=== PATIENT | male | born 1945 | race Caucasian/White ===

== ENCOUNTER → 2019-11-06 | Outpatient (CLI) | payer MEDICARE, BC ==
[~2019-11-06] MED LIST: APIX5TAB PO; FLUT9.9S NS; SOTA80TA48 PO; TAMS0.4C97 PO; TRAM1TAB4 PO
== END | disposition home or self-care (01) ==
LOC: LAB 13:45
PROVIDERS: ATTEND Internal Medicine Gastroenterology
DX: Z11.59 Encounter for screening for other viral diseases (principal); K21.0 Gastro-esophageal reflux disease with esophagitis
CPT/HCPCS: C9803; U0003; 36415

== ENCOUNTER → 2019-11-10 | Day surgery (SDC) | payer MEDICARE, BC ==
[~2019-11-10] MED LIST changes: +HYDROmorphone 2 MG/ML VIAL IV PRN; +IV RINGERS,LACTATED 1000ML 1,000 ML IV SCH; +LIDOCAINE 1% PF 2 ML VIAL. ID PRN; +LIDOCAINE 2% PF 5 ML VIAL. ONE; +MORPHINE SULFATE 2 MG/ML VIAL. IV PRN; +ONDANSETRON PF 4 MG/2 ML VIAL. IV PRN; +PROCHLORPERAZINE 10 MG/2 ML VIAL. IV PRN; +PROPOFOL 10 MG/ML (20ML) VIAL. IV ONE; +fentaNYL PF VIAL 100 MCG/2 ML VIAL IV PRN
--- NOTE | 2019-11-10 10:02 | HP ---
ADMIT DATE: REASON FOR CONSULTATION: Reflux. HISTORY OF PRESENT ILLNESS: A 74-year-old male with past medical history significant for DVTs, sleep apnea, history of colonic polyps, reflux, stage 3 kidney disease, is seen for continued heartburn, chest pain, has been maintained on Zantac until withdrawn, had no history of Tay's or malignancy. Screening colonoscopy will be pursued in 2021. He is otherwise without additional complaints. PAST MEDICAL HISTORY: Stage 3 kidney disease, GERD, history of colonic polyps, diverticulosis. ALLERGIES: None. MEDICATIONS: Include Eliquis, fluconazole, sotalol, tamsulosin, and tramadol. FAMILY AND SOCIAL HISTORY: He is a social drinker, nonsmoker. PAST SURGICAL HISTORY: He has had a hernia repair. REVIEW OF SYSTEMS: As per records. PHYSICAL EXAMINATION: GENERAL: Reveals a well-nourished, well-developed male who is alert, cooperative, in no acute distress. VITAL SIGNS: Temperature 97.6, pulse 64, respirations 20. LUNGS: Clear. CARDIOVASCULAR: Reveals S1, S2 without S3, S4 or appreciable murmur. ABDOMEN: Soft abdomen, normal bowel sounds, without appreciable hepatosplenomegaly. IMPRESSION: Gastroesophageal reflux disease. We will recommend interval endoscopy to assess for ongoing medical therapy needs with stage 3 kidney disease. Risks and benefits discussed with the patient including risks of hemorrhage and perforation and he is willing to proceed. ADALI DASILVA MD DR: LULÚ/demetris JOB#: [id number] / [id number]
[2019-11-10 10:19] VITALS: BP 121/75
--- NOTE | 2019-11-13 16:06 | PATHOLOGY ---
[facility] Accession Number: [id number] . 01 Material submitted: . esophagus - DISTAL ESOPHAGUS BX. Modifiers: distal . 01 Clinical history: . R/O Tay's . 02 Diagnosis: Esophageal biopsies, distal esophagus: - Reflux esophagitis. . (JP:mm; 11/13/2019) [facility] 11/13/2019 1107 Local . 02 Comment: Sections of the distal esophageal biopsy reveal segments of focally tangentially-oriented hyperplastic squamous esophageal mucosa. The findings are consistent with reflux esophagitis. There is no evidence of Tay's change, dysplasia, or malignancy. . (JPM:mm; 11/13/2019) . 02 Electronically signed: . Bhanu Garcia MD, Pathologist NPI- [id number] . 01 Gross description: . The specimen is received in formalin, labeled "Pilo Peter, distal esophagus biopsy". Received are four segments of pale jean soft tissue ranging in size from 0.3 to 0.5 cm in maximum dimensions. The specimen is submitted entirely in cassette A1. ([facility]; 11/10/2019) QAC/QAC 11/10/2019 1534 Local . 02 Pathologist provided ICD-10: K21.0 . 02 CPT . 424074 Specimen Comment: A courtesy copy of this report has been sent to [phone], [phone] Specimen Comment: [id number] Specimen Comment: Report sent to / DR LEPE Performed at: 01 [facility] [address], [place] [id number] MD Adrien Ferrara MD Phone: [phone] Performed at: 02 [facility] [address] [place], [place] [id number] MD Bhanu Garcia MD Phone: [phone]
== END ==
LOC: ENDOS 08:46
PROVIDERS: ATTEND Internal Medicine Gastroenterology
DX: K21.0 Gastro-esophageal reflux disease with esophagitis (principal); K57.30 Diverticulosis of large intestine without perforation or abscess without bleeding; N18.3 Chronic kidney disease, stage 3 (moderate); G47.30 Sleep apnea, unspecified; E78.00 Pure hypercholesterolemia, unspecified; I48.91 Unspecified atrial fibrillation; J45.909 Unspecified asthma, uncomplicated; E66.9 Obesity, unspecified; Z68.30 Body mass index [BMI] 30.0-30.9, adult; Z96.1 Presence of intraocular lens; Z86.010 Personal history of colon polyps; Z98.42 Cataract extraction status, left eye; Z98.41 Cataract extraction status, right eye
CPT/HCPCS: 43239; 88305; J2704; J3490